=== PATIENT | female | born 1965 ===

== ENCOUNTER 2018-10-09 06:38 | Day surgery (SDC) | payer BC ==
[~2018-10-09] VITALS: Ht 160 cm; Wt 73.0 kg
[2018-10-09] VITALS (9 sets, daily range): BP systolic 94–130; BP diastolic 65–77
--- NOTE | 2018-10-09 06:30 | Anethesia Preoperative Eval ---
Anesthesia Pre-op PMH/ROS General Date of Evaluation: Oct 09, 2018 Time of Evaluation: 06:29 Anesthesiologist: bing ASA Score: ASA 1 Mallampati Score Class I : Soft palate, uvula, fauces, pillars visible Class II: Soft palate, uvula, fauces visible Class III: Soft palate, base of uvula visible Class IV: Only hard plate visible Mallampati Classification: Class II Surgeon: rubén Diagnosis: gerd/colon screening Surgical Procedure: colonoscopy Anesthesia History: none Social History: smoking - nonsmoker Family History: no anesthesia problems Allergies: Coded Allergies: No Known Allergies (Unverified , 10/06/18) Medications: see eMAR Patient NPO?: Yes Anesthesia Pre-op Phys. Exam Physician Exam Constitutional: NAD Neurologic: CN 2-12 intact Cardiovascular: RRR Respiratory: CTA Gastrointestinal: S/NT/ND Airway Exam Mallampati Score: Class II MO: full Neck: flexible TMD: 2fb ROM: full Teeth: intact Anesthesia Pre-op A/P Risk Assessment & Plan Assessment: asa1 Plan: mac Status Change Before Surgery: No Pre-Antibiotics Drug: Priyanka Mccoy MD Oct 09, 2018 06:30
[~2018-10-09 06:38] MED LIST: Atropine Inj 1mg/10ml Syr IV PRN; DiphenhydrAMINE 50mg/ml Inj IVP PRN; LR 1000ml 1,000 ML IVLG SCH; Midazolam 2mg/2ml Inj IVP PRN; NKM; fentaNYL 100 mcg/2 mL IV PRN
[2018-10-09] MEDS ORDERED: Lidocaine 1% MPF 10mg/ml 5ml ONE (07:00)
[2018-10-09] MEDS ORDERED: LR 1000ml ONE (07:00)
[2018-10-09] MEDS ORDERED: LR 1000ml 1,000 ML IVLG SCH (07:00)
[2018-10-09] MEDS ORDERED: Propofol 200mg/20ml IV ONE (07:00)
--- NOTE | 2018-10-09 07:27 | Short Stay Surgery H&P ---
History of Present Illness History of Present Illness Chief Complaint Patient here for screening colonoscopy. Very nervous about possibility of upper GI disorders. Notes intermittent reflux symptoms. Has heard about getting both upper and lower endoscopy at same time and wants to have both upper and lower GI evaluations, the upper to r/o significant GI pathology related to her intermittent reflux symptoms, and lower as screening. All explained and patient consented. BASSEM Wheeler is a 52 year old female who was admitted on for Screening Colonoscopy Patient History Allergies: Coded Allergies: No Known Allergies (Unverified , 10/09/18) Medication History Scheduled No Known Medications* (NKM - No Known Medications*), 0 ., (Reported) Physical Exam Vital Signs Last Vital Signs Date Time Temp Pulse Resp B/P (MAP) Pulse Ox O2 Delivery O2 Flow Rate FiO2 10/09/18 07:09 Room Air 10/09/18 06:58 97.2 78 18 119/69 97 Plan Attestation Are the patient's medical conditions optimized for surgery? Margoth Terry MD Oct 09, 2018 07:27
--- NOTE | 2018-10-09 07:28 | Pre-Procedure Note/Attestation ---
Pre-Procedure Note/Attestation Complete Prior to Procedure Planned Procedure: not applicable Procedure Narrative: EGD/Colon Indications for Procedure Pre-Operative Diagnosis: GERD, Screening Attestation I attest that I discussed the nature of the procedure; its benefits; risks and complications; and alternatives (and the risks and benefits of such alternatives ), prior to the procedure, with the patient (or the patient's legal motor vehicle field representative). I attest that, if there was a reasonable possibility of needing a blood transfusion, the patient (or the patient's legal motor vehicle field representative) was given the [facility] standardized written summary, pursuant to the Jose Alberto Michael Blood Safety Act ([place] Health and Safety Code # 1645, as amended). I attest that I re-evaluated the patient just prior to the surgery and that there has been no change in the patient's H&P, except as documented below: Margoth Terry MD Oct 09, 2018 07:28
--- NOTE | 2018-10-09 08:21 | Endoscopy Procedure Note ---
Endoscopy Procedure Note General Indication for Procedure: KYRA, Screen Procedures Performed: EGD, colonoscopy Operative Findings/Diagnosis: HH, KYRA, polyp x 3, tics Specimen: yes Pt Tolerated Procedure Well: Yes Estimated Blood Loss: none Anesthesia Anesthesiologist: see report Anesthesia: MAC Medications Medication Given: see anesthesia record Inserted Devices Implant(s) used?: No GI Core Measures 50 yrs or older w/o bx or poly: No 10yrs. F/U not recommended: No If not recommended, why?: Above average risk 10 yrs. F/U needed: No 18 years or older w/prev. colo: No <3yrs. since last colonoscopy: No Med reason:<3 yrs.: System Reason:<3 yrs.: Last colonoscopy >= to 3yrs: Yes Margoth Terry MD Oct 09, 2018 08:21
--- NOTE | 2018-10-09 08:22 | Brief Operative Note ---
Immediate Post Operative Note Operative Note Chief Complaint: KYRA, Screen Pre-op Diagnosis: GERD, Screening Procedure: EGD, Colon Post-op Diagnosis: HH, KYRA, Tics, Polyp Post-op Diagnosis: same as pre-op plus Surgeon: Mara Anesthesiologist: see report Anesthesia: MAC Specimen: yes Complications: none Condition: stable Fluids: given Estimated Blood Loss: none Drains: none Implant(s) used?: No Margoth Terry MD Oct 09, 2018 08:22
--- NOTE | 2018-10-09 10:53 | Immediate Post-Op Evaluation ---
Immediate Post-Op Evalulation Immediate Post-Op Evalulation Procedure: egd/colonoscopy/bx Date of Evaluation: Oct 09, 2018 Time of Evaluation: 08:32 IV Fluids: 500ml lr Blood Products: none Estimated Blood Loss: negligible Blood Pressure Systolic: 114 Blood Pressure Diastolic: 65 Pulse Rate: 64 Respiratory Rate: 18 O2 Sat by Pulse Oximetry: 98 Temperature (Fahrenheit): 97.0 Pain Score (1-10): 0 Nausea: No Vomiting: No Complications none Patient Status: awake, reacts, patent Hydration Status: adequate Drug: Priyanka Mccoy MD Oct 09, 2018 10:53
--- NOTE | 2018-10-09 10:55 | 48 Hour Post Anesthesia Eval ---
Post Anesthesia Evaluation Procedure: egd/colonoscopy/bx Date of Evaluation: Oct 09, 2018 Time of Evaluation: 08:34 Blood Pressure Systolic: 113 0: 70 Pulse Rate: 66 Respiratory Rate: 18 Temperature (Fahrenheit): 97.0 O2 Sat by Pulse Oximetry: 100 Airway: patent Nausea: No Vomiting: No Pain Intensity: 0 Hydration Status: adequate Cardiopulmonary Status: stable Mental Status/LOC: patient returned to baseline Post-Anesthesia Complications: none Follow-up care needed: N/A Priyanka Oro MD Oct 09, 2018 10:55
--- NOTE | 2018-10-09 20:45 | Operative Note - Dictated ---
DATE OF OPERATION: 10/09/2018 PROCEDURE: Upper gastrointestinal endoscopy as well as colonoscopy with snare polypectomy and biopsy. SURGEON: Margoth Terry M.D. ANESTHESIA: Please see the separate anesthesiologist's notes for details. PRE-ENDOSCOPIC DIAGNOSES: 1. Symptoms of gastroesophageal reflux. 2. Need for screening colonoscopy. POST-ENDOSCOPIC DIAGNOSES: 1. A 3 to 4 centimeter hiatal hernia. 2. A small linear erythema in the lower esophagus suggestive of mild reflux. 3. Diminutive polyp in the distal ascending and proximal descending colon, status post snare polypectomy. 4. Diminutive polyp in the distal descending colon status post biopsy removal. 5. Normal terminal ileum to about 10 cm. 6. Mild scattered colonic diverticulosis. DESCRIPTION OF PROCEDURE: The procedure, its risks, indications, alternatives, and possible complications were explained to the patient and informed consent was obtained. The patient was then sedated and a diagnostic upper endoscope was introduced through the oropharynx and advanced to the duodenum. Endoscope was removed. The colonoscope was introduced into the rectum, advanced to 10 cm into the terminal ileum. The colonoscope was then removed and the mucosa was examined carefully. Both upper and lower gastrointestinal examinations were concluded with retroflexed views. The patient left to recovery in good condition. Findings are as listed above. RECOMMENDATIONS: 1. Follow up biopsy results. 2. Outpatient followup. 3. Repeat colonoscopy in 3 years. 4. Reflux precautions. 5. Zantac as needed for symptoms of heart burn. Margoth Terry M.D. DR: Blanca JOB#: [id number] CC: Margoth Terry M.D.; Fax#: [phone]
== END 2018-10-09 09:40 | disposition home or self-care (01) ==
LOC: GAS 06:38
DX: Z12.11 Encounter for screening for malignant neoplasm of colon (principal); D12.2 Benign neoplasm of ascending colon; D12.4 Benign neoplasm of descending colon; K57.30 Diverticulosis of large intestine without perforation or abscess without bleeding; K21.9 Gastro-esophageal reflux disease without esophagitis; K44.9 Diaphragmatic hernia without obstruction or gangrene; F17.200 Nicotine dependence, unspecified, uncomplicated
CPT/HCPCS: 43235; 45380; 45385; J2704; 94003; 94150